=== PATIENT | male | born 1970 | race Caucasian/White ===

== ENCOUNTER 2017-05-23 15:26 | Inpatient (IN) | payer OTHER ==
[~2017-05-23] VITALS: Ht 177.8 cm; Wt 81.6 kg
[2017-05-23 19:03] LABS: ABSOLUTE BASOPHIL COUNT 0.1 /CUMM (0.0-0.2); ABSOLUTE EOSINOPHIL COUNT 0.1 /CUMM (0.0-0.7); ABSOLUTE GRANULOCYTE CT 19.6 /CUMM (1.4-6.5); ABSOLUTE LYMPH COUNT 2.2 /CUMM (1.2-3.4); ABSOLUTE MONOCYTE COUNT 1.4 /CUMM (0.10-0.60); BASOPHIL % 0.2 % (0.0-2.0); EOSINOPHIL % 0.2 % (0-5); HEMATOCRIT 45.4 % (42-52); MEAN CORPUSCULAR HGB 31.5 PG (27.0-31.0); MEAN CORPUSCULAR HGB CONC 33.6 G/DL (33.0-37.0); MEAN CORPUSCULAR VOLUME 93.8 FL (80.0-94.0); MEAN PLATELET VOLUME 7.8 FL (7.4-10.4); PLATELET COUNT 344 /CUMM (130-400); RBC DISTRIBUTION WIDTH 14.5 % (11.5-14.5); RED BLOOD CELL CT 4.85 /CUMM (4.70-6.10); WHITE BLOOD CELL COUNT 23.4 /CUMM (4.8-10.8)
[2017-05-23 19:14] LABS: GRANULOCYTE % 83.8 % (42.2-75.2)
--- NOTE | 2017-05-23 20:11 | ED GI/GU/ABDOMINAL COMPLAINT ---
History of Present Illness General Chief Complaint: Male Genitourinary Problems Stated Complaint: FLUID RETENTION, EDEMA TO SCROTOM Source: patient Exam Limitations: no limitations Vital Signs & Intake/Output Vital Signs & Intake/Output Vital Signs Date Time Temp Pulse Resp B/P B/P Pulse O2 O2 Flow FiO2 Mean Ox Delivery Rate 05/23 2149 97.4 70 18 128/87 97 05/23 1953 Room Air 05/23 190 97.3 79 18 124/87 96 05/23 1532 97.6 95 16 136/95 94 Room Air Allergies Coded Allergies: No Known Allergies (05/23/17) Reconcile Medications No Known Home Medications Triage Note: PT STATES HE HAS SWELLING IN HIS GROIN STATES AROUND THE SIDE OF HIS SCROTUM, THAT HE FIRST NOTED ON MONDAY. Triage Nurses Notes Reviewed? yes Onset: Abrupt Duration: day(s): (3), constant, continues in ED, getting worse Timing: single episode today Quality/Severity: moderate, sharpness Severity Numbers: 8 Location: groin, scrotal Radiation: no radiation Activities at Onset: none Prior Abdominal Problems: similar symptoms Past Sexual History: Unobtainable at this time No Modifying Factors: none Modifying Factors: Worsens With: movement, palpation. HPI: 47-year-old male with no past medical history presents for evaluation of pain and swelling and redness in his left groin and left hemiscrotum. Patient states she first noticed a small painful swollen area in the left groin about 3 days ago. Since then it has significantly increased in size and now involves the left hemiscrotum. He states the area is red hot and very tender. tHERE HAS been no discharge. No fevers. Patient states he has no medical problems was not been to the doctor in many years. He states that he's never been diagnosed with diabetes. (Bob Millan) Past History Travel History Traveled to [place] past 21 day No Medical History Any Pertinent Medical History? see below for history Tetanus Vaccine: Surgical History Surgical History: non-contributory Psychosocial History What is your primary language Togolese Tobacco Use: Current Daily Use Daily Tobacco Use Amount/Type: => 5 Cigarettes daily ETOH Use: occasional use Illicit Drug Use: marijuana Family History Hx Contributory? No (Bob Millan) Review of Systems Review of Systems Constitutional: Reports: no symptoms. EENTM: Reports: no symptoms. Respiratory: Reports: no symptoms. Cardiovascular: Reports: no symptoms. GI: Reports: no symptoms. Genitourinary: Reports: no symptoms. Musculoskeletal: Reports: no symptoms. Skin: Reports: see HPI, erythema, lesions, lumps. Neurological/Psychological: Reports: no symptoms. Hematologic/Endocrine: Reports: no symptoms. Immunologic/Allergic: Reports: no symptoms. All Other Systems: Reviewed and Negative (Bob Millan) Physical Exam Physical Exam General Appearance: well developed/nourished, no apparent distress, alert, awake Head: atraumatic, normal appearance Eyes: Bilateral: normal appearance, PERRL, EOMI. Ears, Nose, Throat, Mouth: hearing grossly normal, moist mucous membrane Neck: normal inspection, supple, full range of motion Respiratory: normal breath sounds, chest non-tender, no respiratory distress, lungs clear Cardiovascular: regular rate/rhythm, normal peripheral pulses Peripheral Pulses: 2+ radial (R), 2+ radial (L) Gastrointestinal: soft, non-tender Male Genitals: scrotum tenderness (L), testicular tenderness (L), THERE IS PAIN SWELLING AND REDNESS AND INDURATION IN THE LEFT INGUINAL AND LEFT HEMISCROTUM. tHE AREA IS DIFFUSELY TENDER TO PALPATION. tHERE IS SOME FOCAL FLUCTUANCE IN THE LEFT INGUINAL AREA. nO LYMPHATIC STREAKING OR DISCHARGE. tHERE DOES APPEAR TO BE SOME WHITE DISCHARGE IN THE SKIN FOLDS OF THE LEFT GROIN. Back: normal inspection, normal range of motion, no vertebral tenderness Extremities: normal range of motion Neurologic/Psych: no motor/sensory deficits, awake, alert, oriented x 3, normal gait Skin: intact, normal color, warm/dry Core Measures ACS in differential dx? No Sepsis Present: No Sepsis Focused Exam Completed? No (Bob Millan) Progress Differential Diagnosis: STD, ureterolithiasis, urinary retention, urethritis, UTI/pyelo, ABSCESS, CELLULITIS Plan of Care: Orders Procedure Date/time Status Nothing by Mouth 05/[address] in observation 05/23 2204 Active ED Holding Orders 05/23 2204 Active Vital Signs 05/23 2204 Active Code Status 05/23 2204 Active BLOOD CULTURE 05/24 2031 Active LACTIC ACID 05/23 1845 Complete COMPREHENSIVE METABOLIC PANEL 05/23 184 Complete CBC WITHOUT DIFFERENTIAL 05/23 1845 Complete Current Medications Sig/Latricia Start time Last Medication Dose Stop Time Status Admin Nicotine 21 MG DAILY 05/23 2122 UNVr 05/23 (Nicoderm) 2125 Laboratory Tests 05/23/17 2146: Lactic Acid Cancelled 05/23/17 1855: Anion Gap 17 H, Estimated GFR > 60, BUN/Creatinine Ratio 15.6, Glucose 105 H, Lactic Acid 1.3, Calcium 9.6, Total Bilirubin 0.7, AST 17, ALT 27, Alkaline Phosphatase 110, Total Protein 7.6, Albumin 4.3, Globulin 3.3, Albumin/Globulin Ratio 1.3, CBC w Diff NO MAN DIFF REQ, RBC 4.85, MCV 93.8, MCH 31.5 H, MCHC 33.6, RDW 14.5, MPV 7.8, Gran % 83.8 H, Lymphocytes % 9.6 L, Monocytes % 6.2, Eosinophils % 0.2, Basophils % 0.2, Absolute Granulocytes 19.6 H, Absolute Lymphocytes 2.2, Absolute Monocytes 1.4 H, Absolute Eosinophils 0.1, Absolute Basophils 0.1 Microbiology 05/24 2047 BLOOD: Blood Culture - RECD 05/23 2042 BLOOD: Blood Culture - RECD Patient seen and evaluated. He has a very large abscess in the left inguinal and left hemiscrotum area. He currently is afebrile vital signs are stable. Blood work shows an elevated white blood cell count of 23,000. No elevated lactic acid. CT scan demonstrates a 6 x 3 x 4.5 cm abscess in the left perineum. Spoke with Dr. Peña urologist he recommends admitting the patient for IV antibiotics and he will taken to the OR tomorrow. Patient was given a dose of IV Unasyn and vancomycin. Cultures were obtained. Patient will be admitted to general medicine. Case discussed Dr. Rees he agrees. Dr. JULIAN SPOKE WITH THE HOSPITALIST. Diagnostic Imaging: Viewed by Me: CT Scan. Discussed w/RAD: CT Scan. Radiology Impression: PATIENT: SHIRAZ BAXTER PRESENT AGE: 47 PATIENT ACCOUNT NO: [id number] : 71 LOCATION: [facility] ORDERING PHYSICIAN: Bob DEMARCO SERVICE DATE: 05/23/17 EXAM TYPE: CAT - CT PELVIS W IV CONTRAST EXAMINATION: CT PELVIS WITH IV CONTRAST CLINICAL INFORMATION: Pain, swelling and redness in left inguinal area. COMPARISON: None TECHNIQUE: Multidetector CT imaging evaluation of the pelvis was performed with intravenous administration of 95 mL of Optiray 320 nonionic contrast material. DLP: 250 mGy-cm FINDINGS: The visualized loops of bowel are normal in caliber. There are diverticula of the descending and sigmoid colon without diverticulitis. No pelvic free fluid. Prostate gland and seminal vesicles are unremarkable. Urinary bladder is normal. Atherosclerotic calcification of the visualized abdominal aorta and iliac arteries without aneurysm. No pelvic lymphadenopathy. The inguinal lymph nodes are in the normal size range. There is edema of subcutaneous tissues of the anteromedial left thigh and left scrotum. Within the superficial tissues of the left perineum at the lateral aspect of the scrotum (lateral to the left testicle), there is a 6 x 3.2 x 4.5 cm peripherally enhancing structure of low attenuation (density of 13 HU). No gas within this rim-enhancing structure, which has the appearance of an abscess. The muscles of the pelvis and proximal thighs are unremarkable. At L5-S1, there is and disc space narrowing, vacuum disc degeneration, disc bulge and osteophyte formation. Mild osteoarthrosis of the hips. No suspicious bone lesions. IMPRESSION: 1. The superficial, rim-enhancing 6 x 3.2 x 4.5 cm structure of the left perineum lateral to the scrotum is consistent with an abscess. 2. Diverticulosis of the visualized descending and sigmoid colon without diverticulitis. 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 DATE/TIME TRANSCRIBED:05/23/172022 Initial ED EKG: none (Bob Millan) Departure Departure Disposition: STILL A PATIENT Condition: Stable Clinical Impression Primary Impression: Perineal abscess Referrals: Patient Has No Primary Care Dr (PCP/Family) Departure Forms: Customer Survey General Discharge Information Prescriptions: Current Visit Scripts No Known Home Medications Admission Note Spoke With: Eileen Bansal MD Documentation of Exam: Documentation of any treatments & extenuating circumstances including Concerns Regarding Discharge (functional status, medication knowledge or non-compliance, living conditions, etc.) that warrant an admission rather than observation: [ Nothing by mouth after midnight, IV antibiotics, serial labs, incision and drainage in the operating room, urology consult, follow-up cultures] (Black PA,Bob) Admission Note Documentation of Exam: Documentation of any treatments & extenuating circumstances including Concerns Regarding Discharge (functional status, medication knowledge or non-compliance, living conditions, etc.) that warrant an admission rather than observation: PA/DONOR TECHNICIAN Co-Sign Statement Statement: ED Attending supervision documentation- [x] I saw and evaluated the patient. I have also reviewed all the pertinent lab results and diagnostic results. I agree with the findings and the plan of care as documented in the PA's/DONOR TECHNICIAN's documentation. [] I have reviewed the ED Record and agree with the PA's/DONOR TECHNICIAN's documentation. [] Additions or exceptions (if any) to the PAs/DONOR TECHNICIAN's note and plan are summarized below: [] I've seen and personally examined the patient and I agree with the PAs evaluation. He has severe cellulitis and a scrotal abscess. The left hemiscrotum is indurated. The induration is involving the left testicle. The patient being admitted for IV antibiotics, surgical debridement in the OR. (Christian Julian DO
--- NOTE | 2017-05-23 20:36 | CT SCAN REPORT ---
EXAMINATION: CT PELVIS WITH IV CONTRAST CLINICAL INFORMATION: Pain, swelling and redness in left inguinal area. COMPARISON: None TECHNIQUE: Multidetector CT imaging evaluation of the pelvis was performed with intravenous administration of 95 mL of Optiray 320 nonionic contrast material. DLP: 250 mGy-cm FINDINGS: The visualized loops of bowel are normal in caliber. There are diverticula of the descending and sigmoid colon without diverticulitis. No pelvic free fluid. Prostate gland and seminal vesicles are unremarkable. Urinary bladder is normal. Atherosclerotic calcification of the visualized abdominal aorta and iliac arteries without aneurysm. No pelvic lymphadenopathy. The inguinal lymph nodes are in the normal size range. There is edema of subcutaneous tissues of the anteromedial left thigh and left scrotum. Within the superficial tissues of the left perineum at the lateral aspect of the scrotum (lateral to the left testicle), there is a 6 x 3.2 x 4.5 cm peripherally enhancing structure of low attenuation (density of 13 HU). No gas within this rim-enhancing structure, which has the appearance of an abscess. The muscles of the pelvis and proximal thighs are unremarkable. At L5-S1, there is and disc space narrowing, vacuum disc degeneration, disc bulge and osteophyte formation. Mild osteoarthrosis of the hips. No suspicious bone lesions. IMPRESSION: 1. The superficial, rim-enhancing 6 x 3.2 x 4.5 cm structure of the left perineum lateral to the scrotum is consistent with an abscess. 2. Diverticulosis of the visualized descending and sigmoid colon without diverticulitis.
--- NOTE | 2017-05-23 22:15 | History & Physical ---
Kevin Light MD 05/23/17 2214: General Information and HPI MD Statement: I have seen and personally examined SHIRAZ BAXTER and documented this H&P. The patient is a 47 year old M who presented with a patient stated chief complaint of [abscess]. Source of Information: patient Exam Limitations: no limitations History of Present Illness: Patient is a 47-year-old male with no significant past medical history who presents to [facility] ED complaining of swelling and pain of the left groin. He reports that he first noticed the swelling on 05/20/17 and began as a small area approximately 2-3 cm in size. It rapidly grew in size and became severely painful and tender. Pain was not relieved with Tylenol, and it progressed to 10/10 limiting the patient's ability to walk. He reports that approximately one year ago he had a similar level and resolved after it drained some purulent foul-smelling fluid. He denies any trauma to the area, he does not shave his pubic area, he is in a monogamous sexual relationship with his and uses barrier protection. He had one episode of fever and sweats. He also had one brief episode of nausea with no vomiting. He also endorses 2 episodes of nonbloody diarrhea this morning. He has also recently had several tooth aches which are not resolved. He denies any dysuria, hematuria, chest pain, palpitations, shortness breath. Of note patient recently went on a vacation and reports drinking heavily. He also reports taking extra strength Tylenol every 4 hours at home for an extended period of time. He also has not seen a PCP for many years, and on review of systems has been experiencing polyuria and polydipsia. Allergies/Medications Allergies: Coded Allergies: No Known Allergies (05/23/17) Past History Travel History Traveled to [place] past 21 day No Medical History Neurological: NONE EENT: NONE Cardiovascular: NONE Respiratory: NONE Gastrointestinal: NONE Hepatic: NONE Renal: NONE Musculoskeletal: NONE Psychiatric: NONE Endocrine: NONE Blood Disorders: NONE Cancer(s): NONE Surgical History Surgical History: non-contributory Past Family/Social History Family History Relations & Conditions if any MOTHER FH: diabetes mellitus Psychosocial History Smoking Status: Current Everyday Smoker (30 pack year history) ETOH Use: occasional use Illicit Drug Use: marijuana Functional Ability ADLs Independent: dressing, eating, toileting, bathing. Ambulation: independent IADLs Independent: shopping, housework, finances, food prep, telephone, transportation , medication admin. Sexual History Sexually Active Yes # of partners 1 Sexual Orientation Heterosexual Use of Protection Yes Always Review of Systems Review of Systems Constitutional: Reports: fever (1 episode of fever with sweats). Denies: chills, malaise. Cardiovascular: Denies: chest pain, palpitations, syncope. Respiratory: Denies: cough, short of breath. GI: Reports: diarrhea. Denies: bloating. Genitourinary: Reports: frequency. Denies: discharge. Musculoskeletal: Reports: see HPI. Skin: Reports: lumps. Neurological/Psychological: Reports: no symptoms. Exam & Diagnostic Data Last 24 Hrs of Vital Signs/I&O Vital Signs Date Time Temp Pulse Resp B/P B/P Pulse O2 O2 Flow FiO2 Mean Ox Delivery Rate 05/23 2342 99.4 74 20 140/80 96 Room Air 05/23 234 99.4 74 20 140/80 96 Room Air 05/23 2150 97.4 70 18 128/87 97 05/23 1954 Room Air 05/23 1909 97.3 79 18 124/87 96 05/23 1532 97.6 95 16 136/95 94 Room Air Intake & Output 05/24 0800 05/24 0000 05/23 1600 Intake Total 0 Output Total Balance 0 Intake, Oral 0 Patient 180 lb 188 lb Weight Weight Bed scale Reported by Patient Measurement Method Physical Exam General Appearance Alert, Oriented X3, Cooperative, No Acute Distress Skin Temp/Moisture Exam: Warm/Dry Sepsis Skin Exam (color): Normal for Ethnicity HEENT Atraumatic, PERRLA, EOMI, Mucous Membr. moist/pink, poor dentition Cardiovascular Regular Rate, Normal S1, Normal S2, No Murmurs Lungs Clear to Auscultation, Normal Air Movement Abdomen Normal Bowel Sounds, Soft, No Tenderness Neurological Normal Speech, Strength at 5/5 X4 Ext, Normal Tone, Sensation Intact, Cranial Nerves 3-12 NL Extremities No Clubbing, No Cyanosis, No Edema Reproductive (MALE) large, indurated erythematous swelling of the L perineum exteding into the L inguinal area, some fluctuance with no areas of active drainage, tender to palpation, no testicular swelling, Last 24 Hrs of Labs/Mele: Laboratory Tests 04/03/18 2146: Lactic Acid Cancelled 05/23/17 1855: Anion Gap 17 H, Estimated GFR > 60, BUN/Creatinine Ratio 15.6, Glucose 105 H, Lactic Acid 1.3, Calcium 9.6, Total Bilirubin 0.7, AST 17, ALT 27, Alkaline Phosphatase 110, Total Protein 7.6, Albumin 4.3, Globulin 3.3, Albumin/Globulin Ratio 1.3, CBC w Diff NO MAN DIFF REQ, RBC 4.85, MCV 93.8, MCH 31.5 H, MCHC 33.6, RDW 14.5, MPV 7.8, Gran % 83.8 H, Lymphocytes % 9.6 L, Monocytes % 6.2, Eosinophils % 0.2, Basophils % 0.2, Absolute Granulocytes 19.6 H, Absolute Lymphocytes 2.2, Absolute Monocytes 1.4 H, Absolute Eosinophils 0.1, Absolute Basophils 0.1, Acetaminophen < 10.0 L Microbiology 05/23 2222 URINE ROUT: Urine Culture - ORD 05/24 2047 BLOOD: Blood Culture - RECD 05/23 2042 BLOOD: Blood Culture - RECD Diagnostic Data CXR Results The visualized loops of bowel are normal in caliber. There are diverticula of the descending and sigmoid colon without diverticulitis. No pelvic free fluid. Prostate gland and seminal vesicles are unremarkable. Urinary bladder is normal. Atherosclerotic calcification of the visualized abdominal aorta and iliac arteries without aneurysm. No pelvic lymphadenopathy. The inguinal lymph nodes are in the normal size range. There is edema of subcutaneous tissues of the anteromedial left thigh and left scrotum. Within the superficial tissues of the left perineum at the lateral aspect of the scrotum (lateral to the left testicle), there is a 6 x 3.2 x 4.5 cm peripherally enhancing structure of low attenuation (density of 13 HU). No gas within this rim-enhancing structure, which has the appearance of an abscess. The muscles of the pelvis and proximal thighs are unremarkable. At L5-S1, there is and disc space narrowing, vacuum disc degeneration, disc bulge and osteophyte formation. Mild osteoarthrosis of the hips. No suspicious bone lesions. IMPRESSION: 1. The superficial, rim-enhancing 6 x 3.2 x 4.5 cm structure of the left perineum lateral to the scrotum is consistent with an abscess. 2. Diverticulosis of the visualized descending and sigmoid colon without diverticulitis. Assessment/Plan Assessment: Patient is a 47-year-old male with no significant past medical history who presents to [facility] ED complaining of swelling and pain of the left groin. CT suggestive of perineal abscess with subcutaneous gas. Vital signs on admission: T 97.6, P 95, RR 16, BP 136/95, pulse ox 94% on room air Labs significant for leukocytosis (WBC 23.4), anion gap of 17 with mild hypochloremia, glucose 105, lactic acid 1.3, acetaminophen level less than 10 Problem list #Perineal abscess Plan -Admit to general medicine -Unofficial urology consult was placed with Dr. Peña's answering service, per ED Dr. Peña is aware of this patient and recommended keeping him nothing by mouth at midnight for likely surgical intervention -Follow-up repeat lactic acid -Continue IV vancomycin and IV Unasyn -Check hemoglobin A1c given patient's lack of medical care in recent years and reporting of polydipsia and polyuria, although serum glucose on admission was 103 patient reports poor by mouth intake -Patient admits to binge drinking recently on a trip with normally occasional alcohol intake, signs of alcohol withdrawal, would start a CIWA protocol -Follow-up UA -Continue adequate pain control Diet: Nothing by mouth at midnight pending urology evaluation of possible surgery DVT prophylaxis: Alps, start pharmacologic prophylaxis postoperatively CODE STATUS: Full code As Ranked By This Provider Problem List: 1. Perineal abscess Core Measures/Misc (11/06) Acute Coronary Syndrome ACS Diagnosis: No Congestive Heart Failure Congestive Heart Failure Diagnosis No Cerebrovascular Accident CVA/TIA Diagnosis: No VTE (View Protocol) VTE Risk Factors Age>40 No Mechanical VTE Prophylaxis d/t N/A MechProphylax Ordered No VTE Pharm Prophylaxis d/t Surgical Contraindication Sepsis (View protocol) Sepsis Present: No Avery Norton 05/24/17 0029: General Information and HPI Allergies/Medications Home Med list Oxycodone HCl/Acetaminophen (Percocet 5-325 MG Tablet) 5 MG-325 MG TABLET 1 TAB PO Q4P PRN SEVER PAIN Sulfamethoxazole/Trimethoprim (Bactrim Ds Tablet) 800 MG-160 MG TABLET 1 TAB PO BID ABCESS Resident Review Statement Resident Statement: examined this patient, discussed with sports internship, agreed with sports internship, reviewed EMR data (avail), reviewed images Other Findings: 47-year-old gentleman, current smoker, no significant past medical history and no routine follow-up with primary care doctor since last 8 years coming in for evaluation of worsening scrotal swelling since the past 5 days. He had a similar episode in the same location about a year ago which resolved on its own. However this time the swelling increased in size and was associated with excruciating pain around left side inguinal area. He states he did notice some discharge earlier today. Endorses one episode of fever and chills. He also has been experiencing urinary frequency associated with malodorous urine, denies hematuria, dysuria. He has also been having issues with his dentition and has been unable to see a dentist in the recent years. He states that he has been taking Tylenol frequently for inguinal pain as well as tooth pain. Denies nausea/ vomiting,abdominal pain, diarrhea, rash, chest pain, shortness of breath, history of hemorrhoids, fissures, history of diabetes Of note he recently traveled to [place] last week, and stated he had a lot of alcohol at that time. He is monogamous with his and uses barrier protection. Vitals temperature 97.4, heart rate 70, respiratory 18, blood pressure 128/87, 97% on room air Patient was alert oriented not in any distress, Physical examination revealed a left inguinal non irreducible swelling that was painful on palpation extending to the scrotal area. Not improved with elevation of the scrotum. Rest of exam was unremarkable Lab significant for White count 23.4, hemoglobin 15.3, hematocrit 45.4, platelet 344, sodium 140, potassium 2.5, chloride 97, bicarbonate 26, P1 14, creatinine 0.9, anion gap 17, glucose 103, lactic acid 1.3, normal LFTs. tyelenol level <10 CT abdomen with IV contrast: The superficial, rim-enhancing 6 x 3.2 x 4.5 cm structure of the left perineum lateral to the scrotum is consistent with an abscess. 2. Diverticulosis of the visualized descending and sigmoid colon without diverticulitis. Problem list: Rim-enhancing left perineal abscess Plan: Admit to general medicine floor, vitals every 4 [address] ED spoke to Dr. Peña and plan is to keep him nothing by mouth at midnight for OR incision and drainage We'll continue with IV vancomycin and Unasyn pending blood and urine cultures Follow-up hemoglobin A1c as there is family history of diabetes mellitus CBC BEP, trend lactic acid Consider ID consult if patient does not improve Nicotine patch pain control with IV morphine and tyelenol DVT prophylaxis Alps for now and can switch to pharmacological prophylaxis after OR procedure Full code Eileen Bansal 05/24/17 0431: Attending MD Review Statement Attending Statement Attending MD Statement: examined this patient, discuss w/resident/PA/FLOORING INSTALLER, agreed w/resident/PA/FLOORING INSTALLER, reviewed EMR data (avail), reviewed images, amended to note Attending Assessment/Plan: CC: Left groin swelling PMH: No past medical history Patient came to ER for 4 day history of left groin swelling, it started a small 2 cm not, initially painless but then it started to swell rapidly on Monday, associated with pain and redness since Monday. Patient was sitting at one position and could not even move. He felt subjective fever but did not check temperature at home, has mild nausea but no vomiting, had to loose stools but no diarrhea, no diaphoresis passing out cough chest pain abdominal pain. He denies any urinary burning, irritation, frequency, denies any cuts or laceration to the scrotum or groin, denies shaving, denies any recent travel, has been with one partner and uses condom. No medication allergies, drinks socially but last week he had an episode of binge drinking for an event. Current smoker. Patient endorses polyuria and polydipsia since long time, and has not been following a with any physician. Vitals: T max 99.4, HR 95, RR 16, blood pressure 136/95, saturating 94% on room air. On exam: A O 3, cooperative, no acute distress, neck supple, JVD normal, no lymphadenopathy, mucosa moist, no focal neurological deficit, no dependent edema , approximately 8 cm abscess in left groin on scrotum, fluctuation present, very minimum discharge on the superior aspect CVS: S1-S2, RRR. RS: Clear to auscultate bilaterally. Abdomen: Soft, NT, ND, bowel sounds present. CT pelvis with IV contrast: 1. The superficial, rim-enhancing 6 x 3.2 x 4.5 cm structure of the left perineum lateral to the scrotum is consistent with an abscess. 2. Diverticulosis of the visualized descending and sigmoid colon without diverticulitis. Assessment and plan 47-year-old male with no significant past medical history presented in ER for left groin swelling. He appears to have abscess in left perineum and scrotum on examination, confirmed on CT scan. Does not have any crepitus, no gas on CT scan of pelvis. Hemodynamically stable. But has significant leukocytosis with left shift. Lactate normal 1.3. Urologist was called from ER who suggested to keep him nothing by mouth overnight and he will take him to OR for drainage and a.m. + Left perineal abscess - Admit to general medicine - Continue gentle hydration - Nothing by mouth - UA urine culture - Blood culture - Trend lactate - Check HbA1c - Continue vancomycin and Unasyn - Alps DVT prophylaxis - Patient states that he has been taking extra strength Tylenol frequently and last 2 days and also in recent past for his dental pain : Check acetaminophen level - Repeat LFTs with other labs in a.m.
[2017-05-23 23:43] VITALS: BP 140/80
[2017-05-24 04:30] VITALS: BP 140/80
--- NOTE | 2017-05-24 04:31 | Admission Certification ---
Admission Certification Certification Statement - As attending physician, I certify that at the time of - admission, based on clinical presentation, severity of - symptoms, need for further diagnostic testing and - therapeutic interventions, and risk of adverse outcomes - without in-hospital treatment, in my clinical assessment, - this patient requires an acute hospital stay for a minimum - of two nights or longer. I have also considered psychsocial - factors such as support system, advanced age, financial - issues, cognitive issues, and failed out-patient treatments, - past re-admission history, safety of patient, and lack of - compliance as applicable. Specific rationale supporting this admission is: Left perineal abscess
--- NOTE | 2017-05-24 08:00 | Cons- Urology ---
General Information and HPI Consulting Request Date of Consult: 05/24/17 Requested By: Eileen Bansal MD Reason for Consult: LEFT SCROTAL ABSCESS Source of Information: patient, old records Exam Limitations: no limitations History of Present Illness: 47 YR OLD WITH 2 DAYS OF LEFT SCROTAL SWELLING, BECAME MUCH WORSE AND PAINFUL, THUS PRESENTED TO ER. CT REVEALS ABSCESS. ON EXAM, NO NECROSIS WITH AREA OF IMMENENT SKIN RUPTURE FOR DRAINAGE. PT WITH PRIOR ABSCESS 1 YEAR AGO-AGAIN SPONTANEOUS IN ETIOLOGY-WITH RESOLUTION WITHOUT TX. PLAN IS IV ABX AND IF NO IMPROVEMENT, WILL HAVE TO I AND D, WITH DRAINS, IN OR. PT DECLINED IMMEDIATE SURGICAL INTERVENTION AT THIS TIME. Allergies/Medications Allergies: Coded Allergies: No Known Allergies (05/23/17) Home Med List: Oxycodone HCl/Acetaminophen (Percocet 5-325 MG Tablet) 5 MG-325 MG TABLET 1 TAB PO Q4P PRN SEVER PAIN Sulfamethoxazole/Trimethoprim (Bactrim Ds Tablet) 800 MG-160 MG TABLET 1 TAB PO BID ABCESS Current Medications: Current Medications Sig/Latricia Start time Last Medication Dose Route Stop Time Status Admin Ampicillin Sodium/ 3,000 MG Q6 05/24 0100 AC 05/24 Sulbactam Sodium IV 0702 Sodium Chloride 100 ML Ampicillin Sodium/ 0 .STK-MED ONE 05/23 2106 DC Sulbactam Sodium .ROUTE Ampicillin Sodium/ 3,000 MG ONCE ONE 05/23 2100 DC 05/23 Sulbactam Sodium IV 05/23 Sodium Chloride 100 ML Ketorolac 30 MG ONCE ONE 05/23 1900 DC 05/23 Tromethamine IV 05/23 1901 1857 Ketorolac 0 .STK-MED ONE 05/23 1854 DC Tromethamine .ROUTE Morphine Sulfate 2 MG Q4P PRN 05/24 0130 AC 05/24 IV 0455 Nicotine 0 .STK-MED ONE 05/23 2130 DC TOP Nicotine 21 MG DAILY 05/23 2122 AC 05/23 TOP 2125 Vancomycin HCl 1,000 MG DAILY 05/24 1000 AC Dextrose/Water 250 ML IV Vancomycin HCl 0 .STK-MED ONE 05/23 2116 DC .ROUTE Vancomycin HCl 1,000 MG ONCE ONE 05/23 2100 DC 05/23 Dextrose/Water 250 ML IV 05/23 Past History Medical History Blood Transfusion Hx: No Neurological: NONE EENT: NONE Cardiovascular: NONE Respiratory: NONE Gastrointestinal: NONE Hepatic: NONE Renal: NONE Musculoskeletal: NONE Psychiatric: NONE Endocrine: NONE Blood Disorders: NONE Cancer(s): NONE 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 Home Services at Home: None Smoking Status: Current Everyday Smoker (30 pack year history) ETOH Use: occasional use Illicit Drug Use: marijuana Functional Ability ADLs Independent: dressing, eating, toileting, bathing. Ambulation: independent IADLs Independent: shopping, housework, finances, food prep, telephone, transportation , medication admin. Employment History Retired? no Review of Systems Review of Systems Constitutional: Denies: no symptoms. EENTM: Denies: no symptoms. Cardiovascular: Denies: no symptoms. Respiratory: Denies: no symptoms. GI: Reports: bloating. Genitourinary: Reports: see HPI. Musculoskeletal: Denies: no symptoms. Skin: Reports: see HPI. Exam & Diagnostic Data Vital Signs and I&O Vital Signs Date Time Temp Pulse Resp B/P B/P Pulse O2 O2 Flow FiO2 Mean Ox Delivery Rate 05/24 0430 98.6 76 20 140/80 96 Room Air 05/23 2343 99.4 74 20 140/80 96 Room Air 05/23 2343 99.4 74 20 140/80 96 Room Air / 2150 97.4 70 18 128/87 97 / 1954 Room Air 05/23 1909 97.3 79 18 124/87 96 05/23 1532 97.6 95 16 136/95 94 Room Air Intake & Output 05/24 0800 05/24 0000 05/23 1600 05/23 0800 05/23 0000 05/22 1600 Intake Total 0 Output Total Balance 0 Intake, Oral 0 Patient 180 lb 188 lb Weight Weight Bed scale Reported by Patient Measurement Method Physical Exam General Appearance: well developed/nourished, no apparent distress Head: atraumatic Eyes: Bilateral: normal appearance. Ears, Nose, Throat: normal pharynx Neck: normal inspection Respiratory: normal breath sounds Cardiovascular: regular rate/rhythm Gastrointestinal: normal bowel sounds, soft, non-tender Back: normal inspection, no vertebral tenderness Extremities: normal inspection Skin: LEFT SCROTAL INDURATION/ABSCESS Lymphatic: no anterior cervical jadiel, NO LYMPADENOPATHY Reproductive: Normal male genitalia Last 24 Hours of Labs: Laboratory Tests 05/24 05/23 05/23 0635 [id number] Chemistry Sodium (137 - 145 mmol/L) Pending 140 Potassium (3.5 - 5.1 mmol/L) Pending 3.5 Chloride (98 - 107 mmol/L) Pending 97 L Carbon Dioxide (22 - 30 mmol/L) Pending 26 Anion Gap (5 - 16) Pending 17 H BUN (9 - 20 mg/dL) Pending 14 Creatinine (0.7 - 1.2 mg/dL) Pending 0.9 Estimated GFR (>60 ml/min) > 60 BUN/Creatinine Ratio (7 - 25 %) Pending 15.6 Glucose (65 - 99 mg/dL) 105 H Hemoglobin A1c Pending Lactic Acid (0.7 - 2.1 mmol/L) Pending Cancelled 1.3 Calcium (8.4 - 10.2 mg/dL) 9.6 Total Bilirubin (0.2 - 1.3 mg/dL) Pending 0.7 Direct Bilirubin Pending AST (17 - 59 U/L) Pending 17 ALT (21 - 72 U/L) Pending 27 Alkaline Phosphatase (< 127 U/L) Pending 110 Total Protein (6.3 - 8.2 g/dL) Pending 7.6 Albumin (3.5 - 5.0 g/dL) Pending 4.3 Globulin (1.9 - 4.2 gm/dL) 3.3 Albumin/Globulin Ratio (1.1 - 2.2 %) 1.3 Hematology CBC w Diff Pending NO MAN DIFF REQ WBC (4.8 - 10.8 /CUMM) Pending 23.4 H RBC (4.70 - 6.10 /CUMM) Pending 4.85 Hgb (14.0 - 18.0 G/DL) Pending 15.3 Hct (42 - 52 %) Pending 45.4 MCV (80.0 - 94.0 FL) Pending 93.8 MCH (27.0 - 31.0 PG) Pending 31.5 H MCHC (33.0 - 37.0 G/DL) Pending 33.6 RDW (11.5 - 14.5 %) Pending 14.5 Plt Count (130 - 400 /CUMM) Pending 344 MPV (7.4 - 10.4 FL) Pending 7.8 Gran % (42.2 - 75.2 %) 83.8 H Lymphocytes % (20.5 - 51.1 %) 9.6 L Monocytes % (1.7 - 9.3 %) 6.2 Eosinophils % (0 - 5 %) 0.2 Basophils % (0.0 - 2.0 %) 0.2 Absolute Granulocytes (1.4 - 6.5 /CUMM) 19.6 H Absolute Lymphocytes (1.2 - 3.4 /CUMM) 2.2 Absolute Monocytes (0.10 - 0.60 /CUMM) 1.4 H Absolute Eosinophils (0.0 - 0.7 /CUMM) 0.1 Absolute Basophils (0.0 - 0.2 /CUMM) 0.1 Toxicology Acetaminophen (10.0 - 30.0 ug/mL) < 10.0 L Imaging Results: PATIENT: SHIRAZ BAXTER PRESENT AGE: 47 PATIENT ACCOUNT NO: [id number] : 71 LOCATION: [facility] ORDERING PHYSICIAN: Bob DEMARCO SERVICE DATE: 05/23/17 EXAM TYPE: CAT - CT PELVIS W IV CONTRAST EXAMINATION: CT PELVIS WITH IV CONTRAST CLINICAL INFORMATION: Pain, swelling and redness in left inguinal area. COMPARISON: None TECHNIQUE: Multidetector CT imaging evaluation of the pelvis was performed with intravenous administration of 95 mL of Optiray 320 nonionic contrast material. DLP: 250 mGy-cm FINDINGS: The visualized loops of bowel are normal in caliber. There are diverticula of the descending and sigmoid colon without diverticulitis. No pelvic free fluid. Prostate gland and seminal vesicles are unremarkable. Urinary bladder is normal. Atherosclerotic calcification of the visualized abdominal aorta and iliac arteries without aneurysm. No pelvic lymphadenopathy. The inguinal lymph nodes are in the normal size range. There is edema of subcutaneous tissues of the anteromedial left thigh and left scrotum. Within the superficial tissues of the left perineum at the lateral aspect of the scrotum (lateral to the left testicle), there is a 6 x 3.2 x 4.5 cm peripherally enhancing structure of low attenuation (density of 13 HU). No gas within this rim-enhancing structure, which has the appearance of an abscess. The muscles of the pelvis and proximal thighs are unremarkable. At L5-S1, there is and disc space narrowing, vacuum disc degeneration, disc bulge and osteophyte formation. Mild osteoarthrosis of the hips. No suspicious bone lesions. IMPRESSION: 1. The superficial, rim-enhancing 6 x 3.2 x 4.5 cm structure of the left perineum lateral to the scrotum is consistent with an abscess. 2. Diverticulosis of the visualized descending and sigmoid colon without diverticulitis. DICTATED BY: Chandra Diaz MD DATE/TIME DICTATED:05/23/172022 SPORTING GOODS SALES ASSOCIATE:ADAN DATE/TIME TRANSCRIBED:05/23/172022 Assessment/Plan Assessment/Plan LEFT SCROTAL ABSCESS/RESOLVING QUICKLY WITH IV ABX: CONTINUE IV ABX-NO SURGERY TODAY-IF IMPROVED TOMORROW AM, DC HOME WITH PO ABX IS PROBABLE. Copies To: Aureliano Peña MD Consult Acknowledgment - Thank you for your consult request. Attending MD Review Statement Attending Statement Attending MD Statement: examined this patient, discuss w/resident/PA/DIRECTOR [employer] Attending Assessment/Plan: LEFT SCROTAL ABSCESS-RESOLVING QUICKLY WITH IV ABX. IF CONTINUES TO IMPROVE, LIKELY DC HOME WITH PO ABX X 2 WEEKS TOMORROW: NO SURGERY TODAY.
[2017-05-24 08:07] VITALS: BP 125/80
[2017-05-24 08:14] LABS: ABSOLUTE BASOPHIL COUNT 0 /CUMM (0.0-0.2); ABSOLUTE EOSINOPHIL COUNT 0 /CUMM (0.0-0.7); ABSOLUTE GRANULOCYTE CT 17.1 /CUMM (1.4-6.5); ABSOLUTE LYMPH COUNT 1.3 /CUMM (1.2-3.4); ABSOLUTE MONOCYTE COUNT 1.5 /CUMM (0.10-0.60); BASOPHIL % 0.1 % (0.0-2.0); EOSINOPHIL % 0.1 % (0-5); GRANULOCYTE % 85.8 % (42.2-75.2); MEAN CORPUSCULAR HGB 31.3 PG (27.0-31.0); MEAN CORPUSCULAR HGB CONC 33.3 G/DL (33.0-37.0); MEAN CORPUSCULAR VOLUME 93.8 FL (80.0-94.0); MEAN PLATELET VOLUME 8.2 FL (7.4-10.4); PLATELET COUNT 320 /CUMM (130-400); RBC DISTRIBUTION WIDTH 14.1 % (11.5-14.5); RED BLOOD CELL CT 4.48 /CUMM (4.70-6.10)
--- NOTE | 2017-05-24 08:37 | PN- Housestaff ---
Ian BALLARD,Gayatri 05/24/17 0836: Subjective Follow-up For: Perineal Abcess Subjective: Patient seen and examined. Resting comfortably. Last night his abscess self drained and purulent discharge came out which was sent for culture since that event patient has been experiencing relief of symptoms. Plan for today is to get evaluation by ID . He has been evaluated by Dr. Peña the urologist initially plan was to go for I&D but at present Dr. Peña believes that the patient does not require it and he will evaluate the patient later today and decide, after talking with ID He has been afebrile with MAXIMUM TEMPERATURE of 99.4 WBC count is trending down Currently being treated with IV Unasyn and vancomycin and cultures are pending There was concern of liver dysfunction in setting of excessive Tylenol use for past 2 days andacetaminophen level have come back WNL Review of Systems Constitutional: Reports: see HPI. Objective Last 24 Hrs of Vital Signs/I&O Vital Signs Date Time Temp Pulse Resp B/P B/P Pulse O2 O2 Flow FiO2 Mean Ox Delivery Rate 05/24 1635 100.2 68 18 142/88 95 Room Air 05/24 1245 99.2 84 18 128/78 96 Room Air 05/24 0807 98.9 81 20 125/80 96 Room Air 05/24 0430 98.6 76 20 140/80 96 Room Air 05/23 2343 99.4 74 20 140/80 96 Room Air 05/23 2343 99.4 74 20 140/80 96 Room Air 05/23 2150 97.4 70 18 128/87 97 05/23 1954 Room Air 05/23 1909 97.3 79 18 124/87 96 Intake & Output 05/24 1600 05/24 0800 05/24 0000 Intake Total 1140 240 0 Output Total 400 200 Balance 740 40 0 Intake, IV 420 240 Intake, Oral 720 0 0 Number 0 Bowel Movements Output, Urine 400 200 Patient 180 lb Weight Weight Bed scale Measurement Method Physical Exam General Appearance: Alert, Oriented X3, Cooperative HEENT: Atraumatic Neck: Supple Cardiovascular: Normal S1, Normal S2 Lungs: Clear to Auscultation Abdomen: Normal Bowel Sounds, Soft Neurological: Normal Speech Other Physical Findings: left inguinal fluctuance and induration in 2 areas, exquisitely tender to palpation, with mild erythema and with purulent drainage expressed; scrotum with no inflammation. Neuro is without focality. Current Medications: Current Medications Sig/Latricia Start time Last Medication Dose Route Stop Time Status Admin Ampicillin Sodium/ 3,000 MG Q6 05/24 0100 AC 05/24 Sulbactam Sodium IV 1200 Sodium Chloride 100 ML Ampicillin Sodium/ 0 .STK-MED ONE 05/237 DC Sulbactam Sodium .ROUTE Ampicillin Sodium/ 3,000 MG ONCE ONE 05/23 2100 DC 05/23 Sulbactam Sodium IV 05/23 2128 210 Sodium Chloride 100 ML Calcium Carbonate 500 MG DAILY 05/24 1330 AC PO Ketorolac 30 MG ONCE ONE 05/23 1900 DC 05/23 Tromethamine IV 05/23 190 1857 Ketorolac 0 .STK-MED ONE 05/23 1854 DC Tromethamine .ROUTE Morphine Sulfate 2 MG Q4P PRN 05/24 0130 AC 05/24 IV 0455 Nicotine 0 .STK-MED ONE 05/23 2130 DC TOP Nicotine 21 MG DAILY 05/23 2122 05/24 TOP 0818 Oxycodone/ 1 TAB Q4P PRN 05/24 0945 AC Acetaminophen PO Patient Medication 1 ED ONE ONE 05/24 1045 DC Teaching ED 05/24 1046 Vancomycin HCl 1,000 MG DAILY 05/24 1000 DC 05/24 Dextrose/Water 250 ML IV 0818 Vancomycin HCl 0 .STK-MED ONE 05/23 2116 DC .ROUTE Vancomycin HCl 1,000 MG ONCE ONE 05/23 2100 DC 05/23 Dextrose/Water 250 ML IV 05/23 Last 24 Hrs of Lab/Mele Results Last 24 Hrs of Labs/Mics: Laboratory Tests 05/24/17 1052: Urine Color NEAL, Urine Clarity CLEAR, Urine pH 6.0, Ur Specific [place] 1.025, Urine Protein 30 H, Urine Ketones 15 H, Urine Nitrite NEG, Urine Bilirubin NEG , Urine Urobilinogen 4.0 H, Ur Leukocyte Esterase NEG, Ur Microscopic SEDIMENT EXAMINED, Urine RBC 1-3, Urine WBC 1-3 H, Ur Epithelial Cells RARE, Urine Bacteria MANY H, Urine Mucus MOD H, Urine Hemoglobin NEG, Urine Glucose NEG 05/24/17 0635: Anion Gap 15, Estimated GFR > 60, BUN/Creatinine Ratio 21.3, Hemoglobin A1c 5.8, Lactic Acid 0.7, Total Bilirubin 0.7, Direct Bilirubin 0.5 H, AST 15 L, ALT 29 , Alkaline Phosphatase 105, Total Protein 6.4, Albumin 3.5, CBC w Diff NO MAN DIFF REQ, RBC 4.48 L, MCV 93.8, MCH 31.3 H, MCHC 33.3, RDW 14.1, MPV 8.2, Gran % 85.8 H, Lymphocytes % 6.6 L, Monocytes % 7.4, Eosinophils % 0.1, Basophils % 0.1, Absolute Granulocytes 17.1 H, Absolute Lymphocytes 1.3, Absolute Monocytes 1.5 H, Absolute Eosinophils 0, Absolute Basophils 0 05/23/172222: Urine Color Cancelled, Urine Clarity Cancelled, Urine pH Cancelled, Ur Specific [place] Cancelled, Urine Protein Cancelled, Urine Ketones Cancelled, Urine Nitrite Cancelled, Urine Bilirubin Cancelled, Urine Urobilinogen Cancelled, Ur Leukocyte Esterase Cancelled, Ur Microscopic Cancelled, Urine Hemoglobin Cancelled, Urine Glucose Cancelled 05/23/17 214: Lactic Acid Cancelled 05/23/17 1855: Anion Gap 17 H, Estimated GFR > 60, BUN/Creatinine Ratio 15.6, Glucose 105 H, Lactic Acid 1.3, Calcium 9.6, Total Bilirubin 0.7, AST 17, ALT 27, Alkaline Phosphatase 110, Total Protein 7.6, Albumin 4.3, Globulin 3.3, Albumin/Globulin Ratio 1.3, CBC w Diff NO MAN DIFF REQ, RBC 4.85, MCV 93.8, MCH 31.5 H, MCHC 33.6, RDW 14.5, MPV 7.8, Gran % 83.8 H, Lymphocytes % 9.6 L, Monocytes % 6.2, Eosinophils % 0.2, Basophils % 0.2, Absolute Granulocytes 19.6 H, Absolute Lymphocytes 2.2, Absolute Monocytes 1.4 H, Absolute Eosinophils 0.1, Absolute Basophils 0.1, Acetaminophen < 10.0 L Microbiology 05/24 105 URINE ROUT: Urine Culture - RECD 05/24 699 TRUNK: Culture & Sensitivity - RECD 05/24 699 TRUNK: Gram Stain - RECD 05/23 2222 URINE ROUT: Urine Culture - CAN Cancelled: SPECIMEN NOT RECEIVED IN LABORATORY 05/24 2047 BLOOD: Blood Culture - RES 05/23 2042 BLOOD: Blood Culture - RES Assessment/Plan Assessment: Patient is a 47-year-old male with no significant past medical history who presents to [facility] ED complaining of swelling and pain of the left groin. CT suggestive of perineal abscess with subcutaneous gas. He was admitted to general medicine floor and is being treated and evaluated for following conditions #Left perineal abscess Overnight the abscess was drained however we believe that patient will require formal drainage. At present urology service has been consulted by the night team. -Monitor fever and WBC count -Follow blood cultures, urine culture and the culture of purulent fluid from the abscess -The formal incision and drainage with culture collection -HbA1c 5.8, lactate, trended down -ID services have been contacted We are going to maintain the patient on IV Unasyn and discontinue vancomycin Of note ID Dr. Westfall talked to Dr. Peña, who will come in later during the afternoon/evening to evaluate the patient and perform formal incision and drainage. Patient has been made nothing by mouth. Call team has been provided signout to advance diet if there is no plan for incision and drainage today and make patient nothing by mouth at midnight and we will pursue incision and drainage per Dr. Peña vs Gen. surgery versus interventional radiology tomorrow morning. Problem List: 1. Perineal abscess Pain Ratin Pain Location: perineal abcess Pain Goal: Pain 4 or less Pain Plan: prn Tomorrow's Labs & Rationales: craig Chang MD,Chaparro 05/24/17 1320: Attending MD Review Statement Attending Statement Attending MD Statement: examined this patient, discuss w/resident/PA/DIRECTOR OF RADIOLOGY, agreed w/resident/PA/DIRECTOR OF RADIOLOGY, reviewed EMR data (avail), discussed with nursing, discussed with case mgmt, amended to note Attending Assessment/Plan: Patient seen and examined. Resting comfortably. Reports that he feels much better after scrotal drainage began early this morning. On examination his dressing pad over the left side of the groin which had been changed just a few hours earlier was significantly soaked. I was able to express significant amount of purulent fluid from the left groin region. He has a collection in the cephalic and caudal position related to the area of drainage. It is purulent in nature. There is no involvement of the penis. The caudal collection is along the upper aspect of the left side of the scrotum. No palpable inguinal lymphadenopathy. Recommendations: -Follow-up with the ID service regarding antibiotic recommendations: -Patient will require incision and drainage. He was seen by the urology service. Will follow up with radiology service regarding image guided drainage to ensure that any deeper collection is adequately drained. Results of the pelvic CT noted. -Provide pain management with Percocet as needed. May utilize morphine for breakthrough pain. -Hemoglobin A1c is 5.8. Random glucose level is 105. He has no evidence of diabetes.
[2017-05-24 10:06] LABS: WHITE BLOOD CELL COUNT 19.9 /CUMM (4.8-10.8)
[2017-05-24 12:45] VITALS: BP 128/78
--- NOTE | 2017-05-24 13:23 | Cons- Infect Disease ---
General Information and HPI Consulting Request Date of Consult: 05/24/17 Requested By: Chaparro Chang MD Reason for Consult: Left inguinal abscess Source of Information: patient History of Present Illness: This is a 47-year-old man with a history of a left inguinal abscess 1 year prior to admission, which drained on its own, admitted on May 23 with a 3 day history of swelling and pain in the left groin associated with a transient fever and sweats and mild nausea. On admission he was afebrile. Laboratory data revealed a white blood cell count of 23,000, BUN/creatinine 14 and 0.9, with normal liver enzymes. CT of the pelvis revealed a rim-enhancing 6 x 3.2 x 4.5 cm peripherally enhancing structure within the superficial tissues of the left perineum, lateral to the scrotum, suggestive of an abscess. He was begun on Unasyn and Vancomycin. Overnight his abscess began to drain foul-smelling material. He has remained afebrile overnight and presently continues to complain of discomfort in the left groin. 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 Home Services at Home: None Smoking Status: Current Everyday Smoker (30 pack year history) ETOH Use: occasional use Illicit Drug Use: marijuana Functional Ability ADLs Independent: dressing, eating, toileting, bathing. Ambulation: independent IADLs Independent: shopping, housework, finances, food prep, telephone, transportation , medication admin. Sexual History Sexually Active: Yes Number of Partners: 1 Sexual Orientation: Heterosexual Use of Protection: Yes Always Review of Systems Review of Systems All Other Systems: Reviewed and Negative Exam & Diagnostic Data Last 24 Hrs of Vital Signs/I&O Vital Signs Date Time Temp Pulse Resp B/P B/P Pulse O2 O2 Flow FiO2 Mean Ox Delivery Rate 05/24 1245 99.2 84 18 128/78 96 Room Air 05/24 0807 98.9 81 20 125/80 96 Room Air 05/24 0430 98.6 76 20 140/80 96 Room Air 05/23 2343 99.4 74 20 140/80 96 Room Air 05/23 2343 99.4 74 20 140/80 96 Room Air 05/23 2150 97.4 70 18 128/87 97 05/23 1954 Room Air 05/23 1909 97.3 79 18 124/87 96 05/23 1532 97.6 95 16 136/95 94 Room Air Intake & Output 05/24 1600 05/24 0800 05/24 0000 Intake Total 240 0 Output Total 200 Balance 40 0 Intake, IV 240 Intake, Oral 0 0 Number 0 Bowel Movements Output, Urine 200 Patient 180 lb Weight Weight Bed scale Measurement Method Physical Exam Other Physical Findings: Afebrile. He is awake and alert in no acute distress. Skin reveals no rash. HEENT negative. Neck is supple with no adenopathy. Lungs are clear. Heart regular rhythm with no murmur. Abdomen is soft, nontender with positive bowel sounds. Back no CVA tenderness. Extremities left inguinal fluctuance and induration in 2 areas, exquisitely tender to palpation, with mild erythema and with purulent drainage expressed; scrotum with no inflammation. Neuro is without focality. Last 24 Hours of Lab Results: Laboratory Tests 05/24 05/23 05/23 0635 2223 2146 Chemistry Sodium (137 - 145 mmol/L) 141 Potassium (3.5 - 5.1 mmol/L) 3.9 Chloride (98 - 107 mmol/L) 101 Carbon Dioxide (22 - 30 mmol/L) 26 Anion Gap (5 - 16) 15 BUN (9 - 20 mg/dL) 17 Creatinine (0.7 - 1.2 mg/dL) 0.8 Estimated GFR (>60 ml/min) > 60 BUN/Creatinine Ratio (7 - 25 %) 21.3 Hemoglobin A1c (4.2 - 5.8 %) 5.8 Lactic Acid (0.7 - 2.1 mmol/L) 0.7 Cancelled Total Bilirubin (0.2 - 1.3 mg/dL) 0.7 Direct Bilirubin (< 0.4 mg/dL) 0.5 H AST (17 - 59 U/L) 15 L ALT (21 - 72 U/L) 29 Alkaline Phosphatase (< 127 U/L) 105 Total Protein (6.3 - 8.2 g/dL) 6.4 Albumin (3.5 - 5.0 g/dL) 3.5 Hematology CBC w Diff NO MAN DIFF REQ WBC (4.8 - 10.8 /CUMM) 19.9 H RBC (4.70 - 6.10 /CUMM) 4.48 L Hgb (14.0 - 18.0 G/DL) 14.0 Hct (42 - 52 %) 42.0 MCV (80.0 - 94.0 FL) 93.8 MCH (27.0 - 31.0 PG) 31.3 H MCHC (33.0 - 37.0 G/DL) 33.3 RDW (11.5 - 14.5 %) 14.1 Plt Count (130 - 400 /CUMM) 320 MPV (7.4 - 10.4 FL) 8.2 Gran % (42.2 - 75.2 %) 85.8 H Lymphocytes % (20.5 - 51.1 %) 6.6 L Monocytes % (1.7 - 9.3 %) 7.4 Eosinophils % (0 - 5 %) 0.1 Basophils % (0.0 - 2.0 %) 0.1 Absolute Granulocytes (1.4 - 6.5 /CUMM) 17.1 H Absolute Lymphocytes (1.2 - 3.4 /CUMM) 1.3 Absolute Monocytes (0.10 - 0.60 /CUMM) 1.5 H Absolute Eosinophils (0.0 - 0.7 /CUMM) 0 Absolute Basophils (0.0 - 0.2 /CUMM) 0 Urines Urine Color Cancelled Urine Clarity Cancelled Urine pH Cancelled Ur Specific [place] Cancelled Urine Protein Cancelled Urine Ketones Cancelled Urine Nitrite Cancelled Urine Bilirubin Cancelled Urine Urobilinogen Cancelled Ur Leukocyte Esterase Cancelled Ur Microscopic Cancelled Urine Hemoglobin Cancelled Urine Glucose Cancelled 05/23 1855 Chemistry Sodium (137 - 145 mmol/L) 140 Potassium (3.5 - 5.1 mmol/L) 3.5 Chloride (98 - 107 mmol/L) 97 L Carbon Dioxide (22 - 30 mmol/L) 26 Anion Gap (5 - 16) 17 H BUN (9 - 20 mg/dL) 14 Creatinine (0.7 - 1.2 mg/dL) 0.9 Estimated GFR (>60 ml/min) > 60 BUN/Creatinine Ratio (7 - 25 %) 15.6 Glucose (65 - 99 mg/dL) 105 H Lactic Acid (0.7 - 2.1 mmol/L) 1.3 Calcium (8.4 - 10.2 mg/dL) 9.6 Total Bilirubin (0.2 - 1.3 mg/dL) 0.7 AST (17 - 59 U/L) 17 ALT (21 - 72 U/L) 27 Alkaline Phosphatase (< 127 U/L) 110 Total Protein (6.3 - 8.2 g/dL) 7.6 Albumin (3.5 - 5.0 g/dL) 4.3 Globulin (1.9 - 4.2 gm/dL) 3.3 Albumin/Globulin Ratio (1.1 - 2.2 %) 1.3 Hematology CBC w Diff NO MAN DIFF REQ WBC (4.8 - 10.8 /CUMM) 23.4 H RBC (4.70 - 6.10 /CUMM) 4.85 Hgb (14.0 - 18.0 G/DL) 15.3 Hct (42 - 52 %) 45.4 MCV (80.0 - 94.0 FL) 93.8 MCH (27.0 - 31.0 PG) 31.5 H MCHC (33.0 - 37.0 G/DL) 33.6 RDW (11.5 - 14.5 %) 14.5 Plt Count (130 - 400 /CUMM) 344 MPV (7.4 - 10.4 FL) 7.8 Gran % (42.2 - 75.2 %) 83.8 H Lymphocytes % (20.5 - 51.1 %) 9.6 L Monocytes % (1.7 - 9.3 %) 6.2 Eosinophils % (0 - 5 %) 0.2 Basophils % (0.0 - 2.0 %) 0.2 Absolute Granulocytes (1.4 - 6.5 /CUMM) 19.6 H Absolute Lymphocytes (1.2 - 3.4 /CUMM) 2.2 Absolute Monocytes (0.10 - 0.60 /CUMM) 1.4 H Absolute Eosinophils (0.0 - 0.7 /CUMM) 0.1 Absolute Basophils (0.0 - 0.2 /CUMM) 0.1 Toxicology Acetaminophen (10.0 - 30.0 ug/mL) < 10.0 L Last 24 Hours of Mele Results: Blood cultures 2 May 23 negative Left groin superficial culture May 24 pending Diagnostic Data Recent Imaging Findings: CT of the pelvis revealed a rim-enhancing 6 x 3.2 x 4.5 cm peripherally enhancing structure within the superficial tissues of the left perineum, lateral to the scrotum, suggestive of an abscess. Assessment/Plan Assessment/Plan Impression: This is a 47-year-old man with a history of a left inguinal abscess 1 year prior to admission, which drained on its own, admitted on May 23 with a 3 day history of swelling and pain in the left groin associated with a transient fever and sweats and mild nausea, found to be afebrile with a marked leukocytosis and with a CT of the pelvis suggestive of a abscess in the left perineum, which apparently has begun to spontaneously drain. His clinical picture is consistent with an abscess and, given the amount of induration, feel that he will require formal drainage. This may be able to be accomplished at the bedside, either by Urology or General Surgery, or, perhaps, by IR and will need to pursue these options. This is likely polymicrobial, with Staph aureus, anaerobes and gram negatives all possible. A superficial culture has been sent and can await this result but a culture from a sterile drainage procedure would be more helpful. Though MRSA is possible do not feel that this needs to be covered empirically and would continue him on the Unasyn alone pending drainage and cultures. Suggestion: 1. Would pursue more definitive drainage as noted above (either by Urology, General Surgery or IR) 2. Could apply warm compresses to the left groin pending above 3. Discontinue Vancomycin 4. Continue Unasyn pending cultures Consult Acknowledgment - Thank you for your consult request.
[2017-05-24 16:35] VITALS: BP 142/88
--- NOTE | 2017-05-24 17:43 | Patient Discharge Instructions ---
Discharge Instructions General Discharge Information You were seen/treated for: Perineal abscess You had these procedures: Incision and drainage Watch for these problems: Fever, chills, chest pain, palpitations, shortness of breath, worsening of swelling, increased pain at abcess site Special Instructions: -Please follow-up with primary care doctor referral has been provided -please follow-up with urologist Dr. Peña after 2 weeks of discharge -Take antibiotics as directed, you can expirence nausea and diarrhea with antibiotic use -Return to Ed to call your PCP if the swelling or pain doesnot subside -You have been started on nicotine patch which are available over the counter, you can go down to lower dose after 1 week Diet Continue normal diet: Yes Activity Activity Self Limited: Yes Acute Coronary Syndrome Inclusion Criteria At DC or during hospital stay patient has or had the following: ACS DIAGNOSIS No Discharge Core Measures Meds if any: Prescribed or Continued at Discharge CLINT/ARB if EF <40% No Meds if any: NOT Prescribed or Continued at Discharge Congestive Heart Failure Inclusion Criteria At DC or during hospital stay patient has or had the following: CHF DIAGNOSIS No Discharge Core Measures Meds if any: Prescribed or Continued at Discharge Meds if any: NOT Prescribed or Continued at Discharge Cerebrovascular accident Inclusion Criteria At DC or during hospital stay patient has or had the following: CVA/TIA Diagnosis No Discharge Core Measures Meds if any: Prescribed or Continued at Discharge Meds if any: NOT Prescribed or Continued at Discharge Venous thromboembolism Inclusion Criteria VTE Diagnosis No VTE Type NONE VTE Confirmed by (Test) NONE Discharge Core Measures - Per Current guidelines, there needs to be overlap - treatment for the first 5 days of Warfarin therapy. - If discharged on Warfarin prior to 5 days of - overlap therapy, the patient will need to be - assessed for post discharge needs including - *Post discharge parental anticoagulation - *Warfarin and/or parental anticoagulation education - *Follow up date to check INR post discharge At least 5 days overlap therapy as Inpatient No Meds if any: Prescribed or Continued at Discharge Note: Overlap Therapy is Warfarin and Anticoagulant Meds if any: NOT Prescribed or Continued at Discharge
[2017-05-24] MEDS ORDERED: PERCOCET 5-3251 EACH PO (17:49)
[2017-05-24] MEDS ORDERED: BACTRIM DS TAB1 EACH PO (17:49)
[2017-05-24 21:38] VITALS: BP 116/78
[2017-05-25 07:07] VITALS: BP 122/68
--- NOTE | 2017-05-25 07:21 | PN- Housestaff ---
Ian BALLARD,[facility] 05/25/17 0721: Subjective Follow-up For: Perineal abscess Subjective: Pt is seen and examined. Resting comfortably watching television. Patient continues to have discharge from the abscess site since it self drained He did spike a fever overnight on 100.2. No white count and improved to 14.5 Currently on IV Unasyn day 2. Was evaluated by urologist Dr. Peña yesterday who did not believe that he needs a formal incision and drainage We will get in touch with ID and general surgery/IR and see whether he needs formal incision and drainage for could he be discharged on oral antibiotics alone? Awaiting cultures Review of Systems Constitutional: Reports: see HPI. Objective Last 24 Hrs of Vital Signs/I&O Vital Signs Date Time Temp Pulse Resp B/P B/P Pulse O2 O2 Flow FiO2 Mean Ox Delivery Rate 05/25 0707 98.2 62 18 122/68 97 05/24 2138 98.7 66 18 116/78 96 05/24 1635 100.2 68 18 142/88 95 Room Air 05/24 1245 99.2 84 18 128/78 96 Room Air Intake & Output 05/25 1600 05/25 0800 04 0000 Intake Total 260 130 Output Total Balance 260 130 Intake, IV 260 130 Number 1 Bowel Movements Physical Exam General Appearance: Alert, Oriented X3, Cooperative Cardiovascular: Normal S1, Normal S2 Lungs: Clear to Auscultation Abdomen: Soft, No Tenderness Neurological: Normal Speech Other Physical Findings: Left inguinal fluctuance and induration in 2 areas, tender to palpation, mild erythema and with continued purulent drainage Current Medications: Current Medications Sig/Latricia Start time Last Medication Dose Route Stop Time Status Admin Ampicillin Sodium/ 3,000 MG Q6 05/24 0100 AC 05/25 Sulbactam Sodium IV 0559 Sodium Chloride 100 ML Calcium Carbonate 500 MG DAILY 05/24 1330 AC PO Morphine Sulfate 2 MG Q4P PRN 05/24 0130 AC 05/24 IV 0455 Nicotine 21 MG DAILY 05/23 2123 AC 05/24 TOP 0818 Oxycodone/ 1 TAB Q4P PRN 05/24 0945 AC Acetaminophen PO Patient Medication 1 ED ONE ONE 05/24 1045 DC Teaching ED 05/24 1046 Vancomycin HCl 1,000 MG DAILY 05/24 1000 DC 05/24 Dextrose/Water 250 ML IV 0818 Last 24 Hrs of Lab/Mele Results Last 24 Hrs of Labs/Mics: Laboratory Tests 05/25/17 0725: CBC w Diff NO MAN DIFF REQ, RBC 4.58 L, MCV 94.7 H, MCH 30.5, MCHC 32.2 L, RDW 14.2, MPV 8.0, Gran % 73.8, Lymphocytes % 16.2 L, Monocytes % 8.6, Eosinophils % 1.1, Basophils % 0.3, Absolute Granulocytes 10.7 H, Absolute Lymphocytes 2.3, Absolute Monocytes 1.2 H, Absolute Eosinophils 0.2, Absolute Basophils 0 05/24/17 1052: Urine Color NEAL, Urine Clarity CLEAR, Urine pH 6.0, Ur Specific [place] 1.025, Urine Protein 30 H, Urine Ketones 15 H, Urine Nitrite NEG, Urine Bilirubin NEG , Urine Urobilinogen 4.0 H, Ur Leukocyte Esterase NEG, Ur Microscopic SEDIMENT EXAMINED, Urine RBC 1-3, Urine WBC 1-3 H, Ur Epithelial Cells RARE, Urine Bacteria MANY H, Urine Mucus MOD H, Urine Hemoglobin NEG, Urine Glucose NEG Microbiology 05/24 105 URINE ROUT: Urine Culture - RES Assessment/Plan Assessment: Patient is a 47-year-old male with no significant past medical history who presents to [facility] ED complaining of swelling and pain of the left groin. CT suggestive of perineal abscess with subcutaneous gas. He was admitted to general medicine floor and is being treated and evaluated for following conditions #Left perineal abscess -Monitor fever and WBC count MAXIMUM TEMPERATURE 100.2 white count trended down to 15 -Follow blood cultures, urine culture and the culture of purulent fluid from the abscess -Formal incision and drainage with culture collection will pursue with general surgery versus IR -ID on board -Urology Dr. Peña does not feel the need for formal incision and drainage. -Continue IV Unasyn for now -No plan for intervention #Prediabetes Patient reports excessive use of sugary drinks. HbA1c was 5.8 -Extensively counseled on low carbohydrate diet and exercise tenderness of her lifestyle #Smoking Patient reports being comfortable on nicotine patch -Smoking cessation counseling done -continue nicotine patch and will be added to CMR on discharge Regular Diet/DVT prophylaxis with Lovenox and Alps code/full code Problem List: 1. 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 Resting comfortably unless in any acute distress. He reports feeling much better compared to yesterday. He had a low-grade fever overnight. White cell count is trending downwards. On examination he has significantly less drainage from the groin abscess today. However the area of infection is more indurated today. He does appear to have some collection persistent in the inferior portion. He was seen by the urology service today and recommendations are to continue to monitor patient conservatively without any surgical intervention. We will continue IV antibiotic therapy for now and follow culture results. Patient has been encouraged to stay ambulatory.
[2017-05-25 08:04] LABS: ABSOLUTE BASOPHIL COUNT 0 /CUMM (0.0-0.2); ABSOLUTE EOSINOPHIL COUNT 0.2 /CUMM (0.0-0.7); ABSOLUTE GRANULOCYTE CT 10.7 /CUMM (1.4-6.5); ABSOLUTE LYMPH COUNT 2.3 /CUMM (1.2-3.4); ABSOLUTE MONOCYTE COUNT 1.2 /CUMM (0.10-0.60); BASOPHIL % 0.3 % (0.0-2.0); EOSINOPHIL % 1.1 % (0-5); GRANULOCYTE % 73.8 % (42.2-75.2); HEMATOCRIT 43.4 % (42-52); MEAN CORPUSCULAR HGB 30.5 PG (27.0-31.0); MEAN CORPUSCULAR HGB CONC 32.2 G/DL (33.0-37.0); MEAN CORPUSCULAR VOLUME 94.7 FL (80.0-94.0); PLATELET COUNT 332 /CUMM (130-400); RBC DISTRIBUTION WIDTH 14.2 % (11.5-14.5); RED BLOOD CELL CT 4.58 /CUMM (4.70-6.10); WHITE BLOOD CELL COUNT 14.5 /CUMM (4.8-10.8)
--- NOTE | 2017-05-25 09:05 | PN- Urology ---
Surgical Brief Attending Note Brief Attending Note: PT NOW PAIN FREE AND FEELING A LOT BETTER. VSS AFEBRILE. CX PENDING. CBC PENDING. EXAM REVEALS DECREASING INDURATIONA AND ERYTHEMA RETRACTING FROM LEADING EDGE OF CASI. PLAN: DC HOME WITH PO ABX X 2 WEEKS. OK TO RETURN TO WORK ON Monday05/29/17. F/U IN MY OFFICE IN 2 WEEKS TO CALL AND MAKE APPT.
[2017-05-25] MEDS ORDERED: NICOTINE PATCH1 EAC2 TOP (10:01)
--- NOTE | 2017-05-25 11:47 | PN- Infect Dx ---
Subjective Subjective: MAXIMUM TEMPERATURE 100.2. He feels improved with decreased pain in the left groin. Objective Last 24 Hrs of Vital Signs/I&O Vital Signs Date Time Temp Pulse Resp B/P B/P Pulse O2 O2 Flow FiO2 Mean Ox Delivery Rate 05/25 706 98.2 62 18 122/68 97 05/24 2138 98.7 66 18 116/78 96 05/24 1635 100.2 68 18 142/88 95 Room Air 05/24 1245 99.2 84 18 128/78 96 Room Air Intake & Output 05/25 1600 05/25 0800 05/25 0000 Intake Total 260 130 Output Total Balance 260 130 Intake, IV 260 130 Number 1 Bowel Movements Physical Exam Other Physical Findings: He appears comfortable in no acute distress decreased swelling, induration and tenderness in the left inguinal area Results Last 24 Hours of Lab Results: Laboratory Tests 05/25 724 Hematology CBC w Diff NO MAN DIFF REQ WBC (4.8 - 10.8 /CUMM) 14.5 H RBC (4.70 - 6.10 /CUMM) 4.58 L Hgb (14.0 - 18.0 G/DL) 14.0 Hct (42 - 52 %) 43.4 MCV (80.0 - 94.0 FL) 94.7 H MCH (27.0 - 31.0 PG) 30.5 MCHC (33.0 - 37.0 G/DL) 32.2 L RDW (11.5 - 14.5 %) 14.2 Plt Count (130 - 400 /CUMM) 332 MPV (7.4 - 10.4 FL) 8.0 Gran % (42.2 - 75.2 %) 73.8 Lymphocytes % (20.5 - 51.1 %) 16.2 L Monocytes % (1.7 - 9.3 %) 8.6 Eosinophils % (0 - 5 %) 1.1 Basophils % (0.0 - 2.0 %) 0.3 Absolute Granulocytes (1.4 - 6.5 /CUMM) 10.7 H Absolute Lymphocytes (1.2 - 3.4 /CUMM) 2.3 Absolute Monocytes (0.10 - 0.60 /CUMM) 1.2 H Absolute Eosinophils (0.0 - 0.7 /CUMM) 0.2 Absolute Basophils (0.0 - 0.2 /CUMM) 0 Last 24 Hours of Mele Results: Blood cultures May 23 negative Left groin superficial culture May 24 scant growth of mixed pema Urine culture May 24 negative Assessment/Plan ID Impression: Improving, with decreasing inflammation and with his white blood cell count decreasing, on Unasyn Day 2 of treatment for a left inguinal/perineal abscess, which appears to be draining on its own. Suggestion: 1. Warm compresses to the left groin 2. Follow-up final culture 3. Continue Unasyn
[2017-05-25 14:26] VITALS: BP 110/72
[2017-05-25 22:34] VITALS: BP 126/80
[2017-05-26 06:57] VITALS: BP 112/76
[2017-05-26] MEDS ORDERED: BACTRIM DS TAB1 EACH PO (07:26)
[2017-05-26 08:00] LABS: ABSOLUTE BASOPHIL COUNT 0 /CUMM (0.0-0.2); ABSOLUTE EOSINOPHIL COUNT 0.1 /CUMM (0.0-0.7); ABSOLUTE GRANULOCYTE CT 8.2 /CUMM (1.4-6.5); ABSOLUTE LYMPH COUNT 3.1 /CUMM (1.2-3.4); BASOPHIL % 0.2 % (0.0-2.0); EOSINOPHIL % 0.9 % (0-5); GRANULOCYTE % 65.8 % (42.2-75.2); HEMATOCRIT 39.3 % (42-52); MEAN CORPUSCULAR HGB 31.3 PG (27.0-31.0); MEAN CORPUSCULAR HGB CONC 33.3 G/DL (33.0-37.0); MEAN CORPUSCULAR VOLUME 93.8 FL (80.0-94.0); MEAN PLATELET VOLUME 8.1 FL (7.4-10.4); PLATELET COUNT 325 /CUMM (130-400); RBC DISTRIBUTION WIDTH 14.4 % (11.5-14.5); RED BLOOD CELL CT 4.19 /CUMM (4.70-6.10); WHITE BLOOD CELL COUNT 12.4 /CUMM (4.8-10.8)
--- NOTE | 2017-05-26 08:04 | Discharge Summary ---
Visit Information Visit Dates Admission Date: 05/23/17 Discharge Date: 05/26/17 Hospital Course Course Attending Physician: [place] Chang MD Primary Care Physician: Patient Has No Primary Care Dr Hospital Course: Patient is 47-year-old gentleman with no significant past medical history who presented to [facility] with left inguinal/perineal swelling, erythematous and tender, with pain scale of 10 out of 10 limiting patient's ability to walk. Vitals on presentation WNL Admission labs were significant for leukocytosis up to Imaging with CT scan with IV contrast revealed superficial, rim-enhancing 6 x 3.2 x 4.5 cm structure of the left perineum lateral to the scrotum is consistent with an abscess.Diverticulosis of the visualized descending and sigmoid colon without diverticulitis. The patient was admitted to general medicine floor for treatment of left inguinal/perineal abscess. Initially was started on IV vancomycin and IV Unasyn. Overnight the abscess drained by itself. Patient was evaluated by urologist Dr. Peña who did not see the need to do a formal incision and drainage. The patient was also evaluated by infectious disease services and the antibiotic was changed to IV Unasyn and he will be transitioned to oral Augmentin. Patient did spike a low-grade fever tmax 100.2 during his stay his white cell count has been trending down nicely most recent value 12.1. His blood cultures remain negative to date. Culture of purulent material coming out of the abscess was likely superficial and contaminated and shows coagulase negative staph. He complained of polyuria and polydipsia on admission along with use of excessive soda, hence HbA1c was checked which turned out to be 5.8 prediabetic. Patient has been smoking for past 31 years and was offered a nicotine patch along with smoking cessation counseling. Patient was very comfortable with the nicotine patch and is enthusiastic about quitting smoking. He was full code during his stay. -Patient has been counseled to finish Augmentin course to complete 10 days of treatment. -He has been provided referral for PCP and instructions to follow-up -Patient has also been provided referral from Dr. Peña urologist and follow-up instructions and two-week -He has been extensively counseled on healthy lifestyle, low carbohydrate diet and exercise 5 times a week for 30 minutes -Patient has been counseled on smoking cessation and will be discharged on nicotine patch. He can go to lower dose patch after 1 week Allergies: Coded Allergies: No Known Allergies (05/23/17) Disposition Summary Disposition Principal Diagnosis: left inguinal/perineal abscess. Additional Diagnosis: prediabetes Discharge Disposition: home or self care Discharge Instructions General Discharge Information Code Status: Full Code Patient's Diet: Regular diet consuled on consuming less carbohydrate Patient's Activity: As tolerated Follow-Up Instructions/Appts: -Please follow-up with primary care doctor referral has been provided -please follow-up with urologist Dr. Peña after 2 weeks of discharge -Take antibiotics as directed, you can expirence nausea and diarrhea with antibiotic use -Return to Ed to call your PCP if the swelling or pain doesnot subside -You have been started on nicotine patch which are available over the counter, you can go down to lower dose after 1 week Medications at Discharge Discharge Medications: Start taking the following new medications: Amoxicillin/Potassium Clav (Augmentin 875-125 Tablet) 875 MG-125 MG TABLET 1 Tablet ORAL TWICE DAILY Qty = 14 No Refills Instructions: . Nicotine (Nicotine Patch) 21 MG/24 HOUR PATCH.TD24 1 Patch On the skin DAILY Qty = 28 No Refills Instructions: can decrease to lower dose patch after 1 week. Attending MD Review Statement Documenting Attending: [place] Chang MD Other Findings: Discharged in stable condition
--- NOTE | 2017-05-26 08:04 | PN- Housestaff ---
See Addendum Subjective Follow-up For: Perineal abscess Subjective: Patient seen and examined. Resting comfortably. Easily arousable. Tmax to 99.2. Denies any chills. Reports feeling nauseous overnight received 1 dose of Zofran. He states the pain is well controlled and the pain medication. stable to be discharged home. Currently on IV Unasyn Day3 Review of Systems Constitutional: Reports: see HPI. Objective Last 24 Hrs of Vital Signs/I&O Vital Signs Date Time Temp Pulse Resp B/P B/P Pulse O2 O2 Flow FiO2 Mean Ox Delivery Rate 05/26 0557 98.1 50 18 112/76 91 / 2234 98.6 51 18 126/80 97 Room Air 05/25 1426 99.2 63 20 110/72 96 Room Air Intake & Output 05/26 1600 05/26 0800 05/26 0000 Intake Total 440 1510 Output Total Balance 440 1510 Intake, IV 200 10 Intake, Oral 240 1500 Physical Exam General Appearance: Alert, Oriented X3, Cooperative Skin: No Rashes, No Breakdown Cardiovascular: Normal S1, Normal S2 Lungs: Clear to Auscultation Abdomen: Normal Bowel Sounds, Soft, No Tenderness Extremities: No Edema Other Physical Findings: groin abscess, less drainage appears more indurated, appear to have some collection persistent in the inferior portion Current Medications: Current Medications Sig/Latricia Start time Last Medication Dose Route Stop Time Status Admin Ampicillin Sodium/ 3,000 MG Q6 05/24 0100 05/26 Sulbactam Sodium IV 0516 Sodium Chloride 100 ML Calcium Carbonate 500 MG DAILY 05/24 1330 AC 05/25 PO 1035 Enoxaparin Sodium 40 MG 1600 05/25 1600 AC 05/25 SC 1659 Morphine Sulfate 2 MG Q4P PRN 05/24 0130 AC 05/24 IV 0455 Nicotine 21 MG DAILY 05/23 2123 05/25 TOP 1036 Ondansetron HCl 4 MG ONCE ONE 05/25 2245 DC 05/25 IV 05/25 224 2238 Oxycodone/ 1 TAB Q4P PRN 05/24 0945 05/26 Acetaminophen PO 0653 Last 24 Hrs of Lab/Mele Results Last 24 Hrs of Labs/Mics: Laboratory Tests 05/26/17 0637: CBC w Diff NO MAN DIFF REQ, RBC 4.19 L, MCV 93.8, MCH 31.3 H, MCHC 33.3, RDW 14.4, MPV 8.1, Gran % 65.8, Lymphocytes % 25.0, Monocytes % 8.1, Eosinophils % 0.9, Basophils % 0.2, Absolute Granulocytes 8.2 H, Absolute Lymphocytes 3.1, Absolute Monocytes 1.0 H, Absolute Eosinophils 0.1, Absolute Basophils 0 Assessment/Plan Assessment: Patient is a 47-year-old male with no significant past medical history who presents to [facility] ED complaining of swelling and pain of the left groin. CT suggestive of perineal abscess with subcutaneous gas. He was admitted to general medicine floor and is being treated and evaluated for following conditions #Left perineal abscess -Monitor fever and WBC count MAXIMUM TEMPERATURE 99.2 white count trended down to 12 -Follow blood cultures, urine culture and the culture of purulent fluid from the abscess -Formal incision and drainage not required -ID on board -Continue IV Unasyn for now,will be discharged on oral Augmentin #Prediabetes Patient reports excessive use of sugary drinks. HbA1c was 5.8 -Extensively counseled on low carbohydrate diet and exercise tenderness of her lifestyle #Smoking Patient reports being comfortable on nicotine patch -Smoking cessation counseling done -continue nicotine patch and will be added to CMR on discharge Regular Diet/DVT prophylaxis with Lovenox and Alps code/full code Problem List: 1. Perineal abscess Pain Ratin Pain Location: groin Pain Goal: Pain 4 or less Pain Plan: prn Tomorrow's Labs & Rationales: n/a d/c today
[2017-05-26] MEDS ORDERED: AUGMENTIN 875-1 EACH PO ×3 (09:28→11:38)
[2017-05-26] MEDS ORDERED: NICOTINE PATCH1 EAC3 TOP ×3 (09:30→11:38)
--- NOTE | 2017-05-26 11:30 | PN- Infect Dx ---
Subjective Subjective: Afebrile. He feels improved with minimal if any discomfort and with minimal drainage Objective Last 24 Hrs of Vital Signs/I&O Vital Signs Date Time Temp Pulse Resp B/P B/P Pulse O2 O2 Flow FiO2 Mean Ox Delivery Rate 05/26 0557 98.1 50 18 112/76 91 05/25 2234 98.6 51 18 126/80 97 Room Air 05/25 1426 99.2 63 20 110/72 96 Room Air Intake & Output 05/26 1600 05/26 0800 05/26 0000 Intake Total 440 1510 Output Total Balance 440 1510 Intake, IV 200 10 Intake, Oral 240 1500 Physical Exam Other Physical Findings: He appears comfortable in no acute distress mild induration of the left inguinal area persists, with no erythema or tenderness to palpation and with no active drainage Results Last 24 Hours of Lab Results: Laboratory Tests 05/26 636 Hematology CBC w Diff NO MAN DIFF REQ WBC (4.8 - 10.8 /CUMM) 12.4 H RBC (4.70 - 6.10 /CUMM) 4.19 L Hgb (14.0 - 18.0 G/DL) 13.1 L Hct (42 - 52 %) 39.3 L MCV (80.0 - 94.0 FL) 93.8 MCH (27.0 - 31.0 PG) 31.3 H MCHC (33.0 - 37.0 G/DL) 33.3 RDW (11.5 - 14.5 %) 14.4 Plt Count (130 - 400 /CUMM) 325 MPV (7.4 - 10.4 FL) 8.1 Gran % (42.2 - 75.2 %) 65.8 Lymphocytes % (20.5 - 51.1 %) 25.0 Monocytes % (1.7 - 9.3 %) 8.1 Eosinophils % (0 - 5 %) 0.9 Basophils % (0.0 - 2.0 %) 0.2 Absolute Granulocytes (1.4 - 6.5 /CUMM) 8.2 H Absolute Lymphocytes (1.2 - 3.4 /CUMM) 3.1 Absolute Monocytes (0.10 - 0.60 /CUMM) 1.0 H Absolute Eosinophils (0.0 - 0.7 /CUMM) 0.1 Absolute Basophils (0.0 - 0.2 /CUMM) 0 Last 24 Hours of Mele Results: Superficial culture left groin May 24 scant growth of coag-negative Staph Urine culture May 24 negative Blood cultures 2 May 23 negative Assessment/Plan ID Impression: Continue to improve, with decreased inflammation in the left groin, though with persistent induration, with temperatures normal and white blood cell count continuing to decrease on Unasyn Day 3 of treatment for a left inguinal/perineal abscess. The superficial culture for coag-negative Staph likely represents a contaminant and does not require specific treatment Suggestion: 1. Warm compresses to the left groin 2. Surgical follow-up as an outpatient 3. Can discontinue Unasyn and begin Augmentin 875 mg po every 12 hours for 1 more week
== END 2017-05-26 12:10 | DRG 603 ==
LOC: ERH 15:26 → 2NB 22:07 → ERHI 22:07 → ENRESERV 22:50 → ENTRNSPT 22:52 → 2NB 23:20 → CMPTRNSPT 05-24 08:21 → 2NB 05-24 08:30
PROVIDERS: Internal Medicine; Physician Assistant Medical; Urology
DX: L02.215 Cutaneous abscess of perineum (principal); B95.7 Other staphylococcus as the cause of diseases classified elsewhere; D72.829 Elevated white blood cell count, unspecified; F12.90 Cannabis use, unspecified, uncomplicated; F17.210 Nicotine dependence, cigarettes, uncomplicated; N49.2 Inflammatory disorders of scrotum; R73.03 Prediabetes
CPT/HCPCS: 2NBSP; 36415; 81001; 82436; 87040; 87070; 87086; 93005; 93010; 96374; 96375; G0480; J1650; J1885; J2405; J3370; J7060